=== PATIENT | male | born 1975 | race Caucasian/White ===

== ENCOUNTER → 2018-07-02 14:26 | Outpatient (CLI) | payer MEDICAID, SELFPAY ==
--- NOTE | 2018-07-02 14:40 | RAD_ITS ---
STUDY: X-RAY - CERVICAL SPINE REASON FOR EXAM: Male, 42 years old. Several year history of increasing neck pain. TECHNIQUE: 3 view(s) of the cervical spine were obtained. COMPARISON: None FINDINGS: Normal anterior atlantoaxial articulation. Normal odontoid process. There is straightening of the normal cervical lordosis. Anterior spondylosis at the C4-C5, C5-C6 and C6-C7 levels with moderate degree of disc space narrowing. Normal visualized intervertebral neuroforamina. The soft tissue structures are unremarkable. RAD/Cerv Spine 2 or 3 Views IMPRESSION: Straightening of the normal cervical lordosis. This space narrowing and spondylosis at the C4-C5, C5-C6 and C6-C7 levels. Electronically Signed: Roshan Cheema MD at 15:44 EST , Service support ,
== END ==
PROVIDERS: Referring Provider Anesthesiology Pain Medicine; Visit Provider Anesthesiology Pain Medicine
DX: M54.2 Cervicalgia (principal)
CPT/HCPCS: 72040

== ENCOUNTER → 2019-10-21 14:47 | Outpatient (CLI) | payer MEDICAID, SELFPAY ==
[2019-10-21 16:34] LABS: Amphetamine Urine VISTA NEGATIVE (<1000 ng/mL); Barbiturate Urine VISTA NEGATIVE (< 200 ng/mL); Benzodiazepine Urine VISTA NEGATIVE (< 200 ng/mL); Cocaine Urine VISTA NEGATIVE (< 300 ng/mL); Ecstacy Urine VISTA NEGATIVE (< 500 ng/mL); Methadone Urine VISTA NEGATIVE (< 300 ng/mL); PCP Urine VISTA NEGATIVE (< 25 ng/mL); THC Urine VISTA NEGATIVE (< 50 ng/mL); Vista UDS pH Range 6
== END ==
PROVIDERS: Referring Provider Anesthesiology Pain Medicine; Visit Provider Anesthesiology Pain Medicine
DX: F11.20 Opioid dependence, uncomplicated (principal)
CPT/HCPCS: 80307

== ENCOUNTER → 2019-11-18 13:45 | Outpatient (CLI) | payer MEDICARE, MEDICAID, SELFPAY ==
[2019-11-18 14:31] LABS: Amphetamine Urine VISTA NEGATIVE (<1000 ng/mL); Barbiturate Urine VISTA NEGATIVE (< 200 ng/mL); Benzodiazepine Urine VISTA NEGATIVE (< 200 ng/mL); Cocaine Urine VISTA NEGATIVE (< 300 ng/mL); Ecstacy Urine VISTA NEGATIVE (< 500 ng/mL); Methadone Urine VISTA NEGATIVE (< 300 ng/mL); PCP Urine VISTA NEGATIVE (< 25 ng/mL); THC Urine VISTA NEGATIVE (< 50 ng/mL); Vista UDS pH Range 6
[2019-11-18 15:07] LABS: OXY Internal Control LINE = VALID (VALID); Oxycodone Drug Screen Positive (<100 ng/mL)
== END ==
PROVIDERS: Referring Provider Anesthesiology Pain Medicine; Visit Provider Anesthesiology Pain Medicine
DX: F11.20 Opioid dependence, uncomplicated (principal)
CPT/HCPCS: 80307; 80365; G0480

== ENCOUNTER → 2020-03-01 | Outpatient (CLI) | payer MEDICARE, MEDICAID, SELFPAY ==
[2020-03-01 16:21] LABS: Amphetamine Urine VISTA NEGATIVE (<1000 ng/mL); Barbiturate Urine VISTA NEGATIVE (< 200 ng/mL); Benzodiazepine Urine VISTA NEGATIVE (< 200 ng/mL); Cocaine Urine VISTA NEGATIVE (< 300 ng/mL); Ecstacy Urine VISTA POSITIVE (< 500 ng/mL); Methadone Urine VISTA NEGATIVE (< 300 ng/mL); PCP Urine VISTA NEGATIVE (< 25 ng/mL); THC Urine VISTA NEGATIVE (< 50 ng/mL); Vista UDS pH Range 5
== END | disposition home or self-care (01) ==
LOC: LABSPEC 15:41
PROVIDERS: Referring Provider Anesthesiology Pain Medicine; Visit Provider Anesthesiology Pain Medicine
DX: F11.20 Opioid dependence, uncomplicated (principal)
CPT/HCPCS: 36415; 80307

== ENCOUNTER 2022-08-03 21:02 | Emergency (ER) | payer MEDICARE, MEDICAID, SELFPAY ==
[2022-08-03 21:03] VITALS: BP 186/90; PULSE 94; RESP 18; TEMP 36.8; O2SAT 99; BMI 34.0
--- NOTE | 2022-08-03 21:30 | RAD_ITS ---
INDICATION: Injury/Pain EXAMINATION/TECHNIQUE: X-RAY - XR Spine Cervical 4 or 5 Views COMPARISON: 07/02/2018 FINDINGS: VERTEBRAE: Preserved vertebral body height. No fracture. C4-C7 anterior segment effusion. Fractured screws at C4. Reversal of the typical cervical lordosis at C3-4. No significant facet arthropathy. DISCS: C3-4 endplate disease and disc space loss. NECK SOFT TISSUES: No prevertebral soft tissue widening. LUNG APICES: Clear. RAD/Cerv Spine 2 or 3 Views IMPRESSION: No evidence of acute fracture or spondylolisthesis. Progression of degenerative change, particularly at C3-4. Fractured screws at C4. Electronically Signed: Phi Flores MD at 21:50 EDT ,
--- NOTE | 2022-08-03 21:30 | RAD_ITS ---
INDICATION: Injury/Pain EXAMINATION/TECHNIQUE: X-RAY - XR Pelvis 1 or 2 Views COMPARISON: None. FINDINGS: PELVIC BONES: No displaced fracture, destructive or sclerotic lesions. Note that overlapping bowel shadows may however obscure fine detail. Sacroiliac joints are unremarkable. No widening of the pubic symphysis. L4-S1 posterior instrumented fusion and laminectomies. HIPS: The articular structures are unremarkable. No displaced fracture seen in this frontal view. SOFT TISSUES: No soft tissue swelling or gas. RAD/Pelvis 1 or 2 Views IMPRESSION: No evidence of displaced pelvic or hip fracture. Electronically Signed: Phi Flores MD at 21:52 EDT ,
--- NOTE | 2022-08-03 21:37 | EX.ED.DYSGE1 ---
HPI History of Present Illness Chief Complaint: General Illness Informant: patient Onset/Context/Timing Onset: Days (5) Context: Sudden Onset Timing: Continuous Quality: Sharp Location: Bilateral hips, neck Worsened by: Ambulation Relieved by: Nothing Narrative Narrative: Patient presents with neck and bilateral hip pain that began 5 days ago. Patient states he had a syncopal episode 5 days ago where he passed out from a standing position. Patient states he was out for approximately 30 seconds. Patient states that after he fell, he started having pain in both hips as well as his neck. Patient has a history of prior neck injuries and degenerative disc disease. Patient denies any paresthesias or weakness. Patient states his hip pain is worse with ambulation. Patient states nothing seems to help with the pain. Patient denies any paresthesias. Patient denies any bowel or bladder changes. Patient denies any saddle anesthesia. [facility] Medical History (Updated 08/03/22 @ 21:[address] Julian Peoples DO) Anxiety Congenital pyloric stenosis Depression Multiple sclerosis PTSD (post-traumatic stress disorder) Allergy/AdvReac Type Severity Reaction Status Date / Time citalopram [From Celexa] Allergy Hives Verified 08/03/22 21:06 cortisone Allergy Anaphylaxis Verified 08/03/22 21:06 Surgical History (Updated 08/03/22 @ 21:[address] Julian Peoples DO) History of back surgery Hx of foot surgery Hx of knee surgery Hx of neck surgery Social History Smoking Status: Current some day smoker tobacco type: cigarettes ROS ROS ED Constitutional Constitutional ED: Denies chills or fever(s) Eyes Eyes: Denies blurry vision or change in vision ENT ENT ED: Denies rhinorrhea or sore throat Cardiovascular Cardiovascular: Denies chest pain or palpitations Respiratory/Chest Respiratory/Chest: Denies cough or dyspnea Gastrointestinal Gastrointestinal: Denies nausea or vomiting Genitourinary Genitourinary ED: Denies dysuria or hematuria Musculoskeletal Musculoskeletal: Reports neck pain; Denies back pain Integumentary Denies abscess or rash Neurologic Neurologic: Reports headache(s); Denies weakness Allergic/Immunologic Allergic/Immunologic ED: Denies mouth swelling or urticaria EXAM Physical Exam Const Vital Signs: 08/03/22 21:03 08/03/22 21:10 Temperature 98.3 F Temperature Source Temporal Pulse Rate 94 Respiratory Rate 18 Respiratory Effort Normal Respiratory Pattern Normal Blood Pressure 186/90 H Blood Pressure Mean 122 Pulse Ox 99 Oxygen Delivery Method Room Air Positive well nourished, well developed and obese General Appearance ED: well developed and NAD Nutritional Appearance: obese HEENT Reports moist mucous membranes Neck supple and no JVD Neck Narrative: There is tenderness over the lower cervical spine and paraspinal muscles. There is no bony crepitance or step-off. There is no edema or ecchymosis. Range of motion is limited in all motions of the cervical spine secondary to pain. General: tenderness Resp normal respiratory effort and clear to auscultation bilaterally Cardio regular rate and regular rhythm GI normal to inspection, nondistended, normoactive bowel sounds and non-tender Extremity Extremity Narrative: There is tenderness over the hips bilaterally. There is mild pain with internal and external rotation of the hips bilaterally. There is no obvious deformity. Strength is 5/5 bilaterally in the lower extremities. There are no sensory deficits noted. Neuro oriented x3, CN's II-XII intact bilaterally and no sensory deficits noted Sensorium / Orientation: alert Motor Exam: strength 5/5 throughout Psych mental status grossly normal MDM MDM MDM Narrative Medical decision making narrative: Differential diagnosis includes cervical fracture, bilateral hip fractures, pelvic fracture, contusion, and muscle strain. X-rays of the cervical spine will be obtained to assess for cervical spine fracture. X-rays of the pelvis will be obtained to assess for hip fracture and pelvic fracture. Radiography Diagnostic Testing: Clinical Impression(s) from Imaging Studies Cervical Spine X-Ray 08/03/22 21:30 IMPRESSION: No evidence of acute fracture or spondylolisthesis. Progression of degenerative change, particularly at C3-4. Fractured screws at C4. Electronically Signed: Phi Flores MD at 21:50 EDT , Pelvis X-Ray 08/03/22 21:30 IMPRESSION: No evidence of displaced pelvic or hip fracture. Electronically Signed: Phi Flores MD at 21:52 EDT , X-rays of the cervical spine were obtained. There are 4 views. On my independent interpretation, there are some degenerative changes. There is no acute fracture or spondylolisthesis noted. There are some fractures of the screws at C4. There is no displacement of the vertebral bodies however. Radiologist also interpreted the x-rays and agrees. X-rays of the pelvis were obtained. There is 1 view. On my independent interpretation, there is no acute fracture noted. There are no degenerative changes noted. Radiologist also interpreted the x-rays and agrees. Treatment and Re-Evaluation :: Patient was given a dose of Toradol here. Patient was advised of his findings. Patient was instructed to take Tylenol or ibuprofen as needed for pain. Patient was instructed to follow-up with his primary care physician in 5 to 7 days. Patient was also instructed to follow-up with his spine surgeon in 5 to 7 days. Patient was instructed to return if worse in any way. Patient understood and was agreeable with plan. All questions were answered. Discharge Plan Triage Chief Complaint: General Illness ED Provider: Julian Peoples Dx/Rx/DC Orders Clinical Impression: Acute cervical myofascial strain, Contusion of left hip, initial encounter, Contusion of right hip, initial encounter Instructions: ED Contusion, Lower Extremity, ED Neck Sprain or Strain Primary Care Provider: Ryan Sultana Referrals: Ryan Sultana MD [Primary Care Provider] - 5-7 Days Disposition Disposition: Home, Self Care
[2022-08-03] MEDS: Ketorolac 60 MG/2 ML Vial IM (21:45)
== END 2022-08-03 22:12 | disposition home or self-care (01) ==
PROVIDERS: Emergency Provider Emergency Medicine; PCP Psychiatry & Neurology Sleep Medicine; Visit Provider Emergency Medicine
DX: S12.300A Unspecified displaced fracture of fourth cervical vertebra, initial encounter for closed fracture (principal); S70.01XA Contusion of right hip, initial encounter; S70.02XA Contusion of left hip, initial encounter; F17.210 Nicotine dependence, cigarettes, uncomplicated; W18.30XA Fall on same level, unspecified, initial encounter
CPT/HCPCS: 72040; 72170; 96372; 99283

== ENCOUNTER 2022-08-10 19:31 | Emergency (ER) | payer MEDICARE, MEDICAID, SELFPAY ==
[2022-08-10] VITALS (20 sets, daily range): BP systolic 147–165; BP diastolic 89–98; PULSE 74–95; RESP 10–32; TEMP 36.7; O2SAT 91–98; BMI 32.2
[2022-08-10 19:56] LABS: Absolute Lymphocyte Count 1.99 X10^3/uL (0.83-4.51); Basophil# 0.06 X10^3/uL; Basophil% 0.5 % (0-1); Eosinophil# 0.29 X10^3/uL; Eosinophils% 2.4 % (0-5); Hematocrit 39.9 % (40-54); Hemoglobin 13.1 g/dL (13.0-16.5); Lymphocyte # 1.99 X10^3/ul (0.83-4.51); Lymphocyte % 16.4 % (19-41); Mean Corp Hgb Conc 32.8 g/dL (32-36); Mean Corpuscular Hgb 26.3 pg (27.0-32.0); Mean Corpuscular Volume 80.1 fL (80-94); Monocyte# 0.77 X10^3/uL; Monocyte% 6.3 % (0-10); NRBC Flagged by Analyzer 0 % (0-5); Neutrophil # 8.99 X10^3/uL (2.7-7.7); Neutrophil % 74.1 % (47-70); Platelet Count 247 K/mm3 (150-450); RBC Distribution Width CV 14.5 % (11.6-14.6); RBC Distribution Width SD 41.4 fl (35.1-43.9); Red Blood Count 4.98 M/mm3 (4.6-6.2); White Blood Count 12.1 K/mm3 (4.4-11.0)
--- NOTE | 2022-08-10 19:56 | EKG12_ITS ---
Test Reason : DYSRHYTHMIA Blood Pressure : / mmHG Vent. Rate : 080 BPM Atrial Rate : 080 BPM P-R Int : 154 ms QRS Dur : 080 ms QT Int : 402 ms P-R-T Axes : 057 -13 054 degrees QTc Int : 463 ms Normal sinus rhythm Normal ECG Confirmed by ZA HOLDEN, GABBY ([id number]), editor department LEWIS PERALTA ([id number]) on 08/15/2022 7:41:57 AM Referred By: NIMESH Confirmed By:MODESTO MENDENHALL MD
[2022-08-10 20:10] LABS: Anion Gap 8 (5-15); BUN 16 mg/dL (7-18); Calcium,Total 9.1 mg/dL (8.5-10.1); Chloride 108 mmol/L (98-107); Creatinine, Serum 1.23 mg/dL (0.70-1.30); EST Glomerular Filtration Rate 67 mL/min (>60); Est Glom Filt Rate - Afr Amer 81 mL/min (>60); Estimated Creatinine Clearance 87.78 ml/min; Glucose 119 mg/dL (74-106); Potassium 3.7 mmol/L (3.5-5.1); Sodium Level 140 mmol/L (136-145)
--- NOTE | 2022-08-10 20:10 | RAD_ITS ---
INDICATION: SOB EXAMINATION/TECHNIQUE: X-RAY - XR Chest 1 View COMPARISON: None. FINDINGS: LINES/DEVICES: None. LUNGS: No consolidation, edema or effusion. No pneumothorax. MEDIASTINUM AND CARDIOVASCULAR STRUCTURES: Cardiac silhouette not enlarged. Central airways and mediastinal contour are unremarkable. BONES AND SOFT TISSUES: Unremarkable. RAD/Chest 1 View IMPRESSION: No radiographic evidence of acute cardiopulmonary disease. Electronically Signed: Abhijeet Bowling DO at 20:20 EDT ,
[2022-08-10] MEDS: Ipratropium/Albuterol Sulfate 3 ML AMPUL.NEB INHALATION (20:16)
[2022-08-10] MEDS: predniSONE 20 MG Tablet 60 MG PO (20:27)
[2022-08-10] MEDS: Albuterol 2.5 MG/3 ML VIAL.NEB. INHALATION ×3 (20:36→21:02)
--- NOTE | 2022-08-10 21:14 | EX.ED.VIS.UR ---
HPI HPI - URI History of Present Illness Chief Complaint: Shortness of Breath Detail of Chief Complaint: Shortness of breath with upper respiratory symptoms that started several da Informant: patient Onset/Context/Timing Onset: Days Context: Sudden Onset Timing: Continuous and Waxes and wanes Quality: Upper respiratory tract infectious symptoms Location: Upper [place] Current Severity: Moderate Maximum Severity: Severe Associated Symptoms Associated Symptoms: Positive for Nasal Congestion, Headache, Myalgias, Nausea, Shortness of Breath and Nonproductive cough; Negative for Sinus Pressure, Vomiting, Diarrhea, Chest Pain, Hemoptysis or Productive Cough Narrative Narrative: Patient is a 46-year-old male who is a smoker and presents with upper respiratory tract infection symptoms that started several days ago. He denies ill contacts. He complains of headache, rhinorrhea, congestion, sore throat, cough, dyspnea, [place] exertion and wheezing. He denies history of asthma or COPD. He denies history of VTE. He denies leg pain, swelling or discoloration. He denies nausea, vomiting or diarrhea. He denies urologic symptoms. He denies rash. Prior similar symptoms: Yes Recent Illness/Hospitalization: No ROS ROS ED Constitutional Constitutional ED: Reports chills, fever(s) and subjective; Denies sweats or weight loss Eyes Eyes: Denies blurry vision, change in vision or diplopia ENT ENT ED: Reports rhinorrhea and sore throat; Denies ear pain Cardiovascular Cardiovascular: Denies chest pain, orthopnea, palpitations, paroxysmal nocturnal dyspnea or racing heartbeat Respiratory/Chest Respiratory/Chest: Reports cough, dyspnea, dyspnea on exertion and other Details: Change in voice ; Denies orthopnea, paroxysmal nocturnal dyspnea or sputum Gastrointestinal Gastrointestinal: Denies abdominal pain, diarrhea or vomiting Genitourinary Genitourinary ED: Denies dysuria, hematuria or urinary frequency Musculoskeletal Musculoskeletal: Reports myalgias; Denies arthralgias, back pain or neck pain Integumentary Denies abscess or Abrasions Neurologic Neurologic: Reports headache(s) and weakness; Denies paresthesias Psychiatric Psychiatric: Reports anxiety Hematologic/Lymphatic Hematologic/Lymphatic: Denies easy bleeding or easy bruising [facility] Medical History Anxiety Congenital pyloric stenosis Depression Multiple sclerosis PTSD (post-traumatic stress disorder) Home Medications albuterol sulfate 90 mcg/actuation aerosol inhaler (Ventolin HFA) 2 puff inhalation Q4H PRN PRN Wheezing ##1 08/10/22 [Rx Last Taken Unknown] prednisone 20 mg tablet 60 mg PO DAILY #15 TABLETS 08/10/22 [Rx Last Taken Unknown] Allergy/AdvReac Type Severity Reaction Status Date / Time citalopram [From Celexa] Allergy Hives Verified 08/10/22 19:35 cortisone Allergy Anaphylaxis Verified 08/10/22 19:35 Surgical History History of back surgery Hx of foot surgery Hx of knee surgery Hx of neck surgery Social History household members: none Smoking Status: Current some day smoker tobacco type: cigarettes substance use type: does not use EXAM Physical Exam Const Vital Signs: 08/10/22 19:33 08/10/22 19:54 08/10/22 19:54 Temperature 98.0 F Temperature Source Temporal Pulse Rate 87 Respiratory Rate 20 H 21 H Respiratory Effort Respiratory Depth Respiratory Pattern Blood Pressure 163/98 H Blood Pressure Mean 119 Pulse Ox 97 98 Oxygen Delivery Method Room Air Room Air Room Air 08/10/22 20:23 Temperature Temperature Source Pulse Rate Respiratory Rate Respiratory Effort Short of Breath Accessory Muscle Use Respiratory Depth Deep Respiratory Pattern Tachypnea Blood Pressure Blood Pressure Mean Pulse Ox Oxygen Delivery Method Room Air Positive well nourished, well developed and obese Constitutional Narrative: Patient appears ill but not toxic. He has a hoarse voice. General Appearance ED: well developed; Negative for cyanotic, diaphoretic or pallor Nutritional Appearance: obese HEENT Reports moist mucous membranes normocephalic and atraumatic Face and Sinus: Negative for sinus tenderness Throat: posterior oropharynx normal Eyes PERRL and EOMs intact bilaterally General Eye ED: Negative for pale conjunctiva or scleral icterus Neck no lymphadenopathy, supple, no meningeal signs and no JVD Resp No normal respiratory effort and No clear to auscultation bilaterally Resp Narrative: There is minimal use of accessory muscles. There is no retractions. Auscultation: rales right base and wheezes expiratory wheezes, scattered wheezes and throughout Cardio S1 normal heart sound, S2 normal heart sound and no murmurs Rate: regular rate Rhythm: regular rhythm Back/Spine no CVA tenderness and normal ROM Thoracic Spine / Upper Back: Negative for thoracic spinal tenderness Lumbar Spine / Lower Back: Negative for lumbar spinal tenderness Extremity normal to inspection General Extremety ED: Negative for cyanosis, tenderness or other findings General Extremity: Negative for cyanosis or other findings Neuro oriented x3, CN's II-XII intact bilaterally and no sensory deficits noted Sensorium / Orientation: alert Psych mental status grossly normal Skin General Skin Exam: Negative for jaundice or pallor Lesions: no lesions Rashes: no rashes MDM MDM MDM Narrative Medical decision making narrative: Differential diagnosis includes acute bronchitis or bronchospasm, pneumonia with bronchospasm, purulent bronchitis. Will obtain chest x-ray to evaluate for pneumonia. Blood work to assess white count, rule out anemia. Electrolyte panel to assess glucose, CO2 anion gap and renal function since he has not had much to eat per his account History & Record Review Discussion w/independent historian: Patient Additional record(s) reviewed:: Prior ED visit (Prior ER record from August 03 was reviewed. It is not related to today's presentation.) Lab Data Attestation: I reviewed the patient's lab results. Lab results narrative: White count is elevated with mild shift. There is no bandemia. Basic metabolic panel reveals a creatinine of 1.23 with a GFR of 67. Glucose is slightly elevated 119 with a normal CO2 anion gap. Labs: Laboratory Results - last 24 hr 08/10/22 08/10/22 19:44 19:44 WBC 12.1 H RBC 4.98 Hgb 13.1 Hct 39.9 L MCV 80.1 MCH 26.3 L MCHC 32.8 RDW Std Deviation 41.4 RDW Coeff of Ade 14.5 Plt Count 247 MPV 9.0 Immature Gran % (Auto) 0.300 Neut % (Auto) 74.1 H Lymph % (Auto) 16.4 L [place] % (Auto) 6.3 Eos % (Auto) 2.4 Baso % (Auto) 0.5 Absolute Neuts (auto) 9.0 H Absolute Lymphs (auto) 1.99 Nucleated RBC % 0 Sodium 140 Potassium 3.7 Chloride 108 H Carbon Dioxide 24.0 Anion Gap 8 BUN 16 Creatinine 1.23 Estim Creat Clear Calc 87.78 Est GFR (MDRD) Af Amer 81 Est GFR (MDRD) Non-Af 67 BUN/Creatinine Ratio 13.0 Glucose 119 H Calcium 9.1 Radiography Chest X-Ray - ED: 2 View and Read by ED Physician (Chest x-ray was independently reviewed interpreted by me as negative. Cardiac silhouette and size unremarkable. Lung parenchyma is normal.) Diagnostic Testing: Clinical Impression(s) from Imaging Studies Chest X-Ray 08/10/22 20:10 IMPRESSION: No radiographic evidence of acute cardiopulmonary disease. Electronically Signed: Abhijeet Bowling DO at 20:20 EDT , Rhythm Strip Rhythm Strip: Sinus Rhythm Rate: 92 Ectopy: None Treatment and Re-Evaluation Narrative: Patient was treated with DuoNeb, albuterol. On reexamination at 2132 he still has slight wheezing. He looks and reports feeling much better. Patient was informed he has an acute bronchitis with bronchospasm. Since he is still wheezing will discharge with a prescription for prednisone and albuterol inhaler. He has used in albuterol inhaler in the past. He was informed that he needs to stop smoking. Discharge Plan Triage Chief Complaint: Shortness of Breath ED Provider: Justin Hall Dx/Rx/DC Orders Clinical Impression: Bronchospasm with bronchitis, acute, Tobacco use, Laryngitis Instructions: ED Bronchitis with Wheezing (Adult) Prescriptions: New prednisone 20 mg tablet 60 mg PO DAILY Qty: 15 0RF albuterol sulfate [Ventolin HFA] 90 mcg/actuation HFA aerosol inhaler 2 puff inhalation Q4H PRN PRN (Reason: Wheezing) Qty: 1 0RF Primary Care Provider: Ryan Sultana Referrals: Ryan Sultana MD [Primary Care Provider] - Disposition Disposition: Home, Self Care
--- NOTE | 2022-08-10 21:59 | CPS ---
x3 Albuterol given to pt. in ER as well
== END 2022-08-10 21:57 | disposition home or self-care (01) ==
PROVIDERS: Emergency Provider Emergency Medicine; PCP Psychiatry & Neurology Sleep Medicine; Visit Provider Emergency Medicine
DX: J20.9 Acute bronchitis, unspecified (principal); J04.0 Acute laryngitis; F17.210 Nicotine dependence, cigarettes, uncomplicated
CPT/HCPCS: 71045; 80048; 85025; 87811; 93005; 94640; 94760; 99252; 99282; A4216; G0463

== ENCOUNTER → 2023-08-14 | Outpatient (CLI) | payer SELFPAY ==
[2023-08-14 22:26] LABS: Absolute Neutrophil Count 4.3 X10^3/uL (2.0-7.7); Basophil# 0.08 X10^3/uL; Basophil% 0.9 % (0-1); Eosinophil# 0.23 X10^3/uL; Eosinophils% 2.6 % (0-5); Hematocrit 42.8 % (40-54); Hemoglobin 13.7 g/dL (13.0-16.5); Lymphocyte % 40.3 % (19-41); Mean Corpuscular Volume 81.2 fL (80-94); Mean Platelet Vol. 9.5 fl (6.2-12.0); Monocyte% 6.9 % (0-10); NRBC Flagged by Analyzer 0 % (0-5); Neutrophil # 4.25 X10^3/uL (2.7-7.7); Neutrophil % 49.1 % (47-70); Platelet Count 332 K/mm3 (150-450); RBC Distribution Width CV 13.3 % (11.6-14.6); RBC Distribution Width SD 38.9 fl (35.1-43.9); Red Blood Count 5.27 M/mm3 (4.6-6.2); White Blood Count 8.7 K/mm3 (4.4-11.0)
[2023-08-14 23:01] LABS: ALB/GLOB Ratio 1.1 RATIO (0.9-2.4); AST(SGOT) 12 U/L (15-37); Alanine Aminotransfer ALT/SGPT 24 U/L (16-61); Alkaline Phosphatase 140 U/L (45-117); Anion Gap 4 (5-15); BUN 25 mg/dL (7-18); BUN/Creat Ratio 19.8 RATIO (10-20); CRP, High Sensitivity Cardiac 0.83 mg/L; Calcium,Total 8.8 mg/dL (8.5-10.1); Chloride 111 mmol/L (98-107); Cholesterol 199 mg/dL (200); Creatinine, Serum 1.26 mg/dL (0.70-1.30); EST Glomerular Filtration Rate 65 mL/min (>60); Est Glom Filt Rate - Afr Amer 78 mL/min (>60); Globulin 3.7 g/dL (2.2-4.2); Glucose 113 mg/dL (74-106); High Density Lipoprotein 27 mg/dL; PSA,Total - Annual Screen 0.77 ng/mL (0.00-4.00); Potassium 4.1 mmol/L (3.5-5.1); Protein, Total 7.7 g/dL (6.4-8.2); Sodium Level 139 mmol/L (136-145); Thyroid Stim Hormone (TSH) 0.79 uIU/mL (0.358-3.74); Triglycerides 453 mg/dL; Troponin-I HS 4 pg/mL (3.0-78.0)
== END | disposition home or self-care (01) ==
PROVIDERS: PCP Nurse Practitioner; Visit Provider Nurse Practitioner
DX: R07.9 Chest pain, unspecified (principal); R59.1 Generalized enlarged lymph nodes; S01.301A Unspecified open wound of right ear, initial encounter; I10 Essential (primary) hypertension; F41.9 Anxiety disorder, unspecified; R35.0 Frequency of micturition
CPT/HCPCS: 80053; 80061; 84153; 84443; 84484; 85025; 86141; 87070; 87077; 87186; 87205; G0103

== ENCOUNTER → 2023-08-15 | Outpatient (CLI) | payer MEDICARE, MEDICAID, SELFPAY ==
--- NOTE | 2023-08-15 09:55 | RAD_ITS ---
INDICATION: R chest pain -- patient states had MRI in 2018 and found a nodule? EXAMINATION/TECHNIQUE: X-RAY - XR Chest 2 Views W/ Lordotic COMPARISON: August 10, 2022 FINDINGS: LINES/DEVICES: None. LUNGS: No consolidation, edema or effusion. No pneumothorax. MEDIASTINUM AND CARDIOVASCULAR STRUCTURES: Cardiac silhouette not enlarged. Central airways and mediastinal contour are unremarkable. BONES AND SOFT TISSUES: There are postsurgical changes of visualized cervical spine. RAD/Chest 2 V w/ Apical/Lordotic IMPRESSION: No radiographic evidence of acute cardiopulmonary disease. Electronically Signed: Elif Dhillon MD at 9:19 EDT ,
== END | disposition home or self-care (01) ==
PROVIDERS: PCP Nurse Practitioner; Referring Provider Nurse Practitioner; Visit Provider Nurse Practitioner
DX: R07.9 Chest pain, unspecified (principal)
CPT/HCPCS: 71047

== ENCOUNTER 2024-06-24 21:10 | Emergency (ER) | payer MEDICARE, SELFPAY ==
[2024-06-24 21:11] VITALS: BP 121/77; PULSE 79; RESP 20; TEMP 36.9; O2SAT 98; BMI 30.2
[2024-06-24 21:13] VITALS: BP 121/77; PULSE 79; RESP 20; TEMP 36.9; O2SAT 98
--- NOTE | 2024-06-24 21:13 | RAD_ITS ---
PROCEDURE: CHEST 1 VIEW (PORTABLE) REASON FOR EXAM: Cough. TECHNIQUE: Frontal view of the chest. COMPARISON: 08/15/2023. FINDINGS: Cardiac size and pulmonary vasculature are within normal limits. No consolidation, pleural effusion, or pneumothorax is present. There is dextroscoliosis of the midthoracic spine. Cervical spinal fusion is noted. RAD/Chest 1 View (Portable) IMPRESSION: No acute cardiopulmonary process. Reading Location: [facility]
[2024-06-24 23:07] VITALS: RESP 16; O2SAT 99
[2024-06-24 23:10] VITALS: BP 122/68; PULSE 70; RESP 12; O2SAT 98
--- NOTE | 2024-06-24 23:34 | EX.ED.DYSGE1 ---
HPI History of Present Illness Chief Complaint: Cold Sx Informant: patient Narrative Narrative: 48-year-old male states he has been sick for a month. He states he started with vomiting and diarrhea for about 2 days, then it was mostly diarrhea for another week, now for the past 2 weeks he has been having cough, congestion, asthma flareup, fevers, persistent diarrhea although not as bad, and he feels nauseated again but he has not vomited today. First time he has seen a provider for this illness. Denies any leg swelling. He has a sore lesion on his left ear, he states he does not have anything to put on it. He denies sore throat or mouth pain. No rashes otherwise. He has been using his rescue inhaler quite a bit at home and it has been helping temporarily. [facility] Medical History Asthma, exercise induced Anxiety Depression PTSD (post-traumatic stress disorder) Multiple sclerosis Congenital pyloric stenosis Home Medications ?Medication ?Instructions ?Recorded ?Last Taken ?Type acetaminophen 650 mg 650 mg PO Q12H 11/17/22 Unknown History tablet,extended release (Tylenol 8 Hour) atorvastatin 20 mg tablet 20 mg PO QHS 11/17/22 Unknown History fluoxetine 40 mg capsule (Prozac) 40 mg PO DAILY 11/17/22 Unknown History pregabalin 300 mg capsule 600 mg PO DAILY 11/17/22 Unknown History bupropion HCl 150 mg tablet,12 hr 150 mg PO BID #60 ea 08/14/23 Unknown Rx sustained-release quetiapine 50 mg tablet 50 mg PO TID 08/14/23 Unknown History promethazine 12.5 mg tablet 12.5 mg PO TID PRN nausea and 09/13/23 Unknown Rx vomiting #30 tabs albuterol sulfate 90 mcg/actuation 2 puff inhalation Q4H PRN PRN 01/18/24 Unknown Rx aerosol inhaler (Ventolin HFA) Wheezing ##1 lisinopril 10 mg tablet 10 mg PO DAILY #30 tabs 01/18/24 Unknown Rx topiramate 100 mg tablet 100 mg PO BID #60 tabs 01/18/24 Unknown Rx hydroxyzine pamoate 50 mg capsule 50 mg PO Q8H PRN nausea and 06/24/24 Unknown History vomiting mupirocin 2 % topical ointment 1 applic topical BID PRN rash #15 06/24/24 Unknown Rx grams ondansetron 8 mg disintegrating 8 mg PO Q8H PRN nausea and 06/24/24 Unknown Rx tablet vomiting #12 tabs oxycodone 10 mg tablet 10 mg PO TID PRN PRN pain 06/24/24 Unknown History prednisone 10 mg tablet 10 mg PO UD #30 tabs 06/24/24 Unknown Rx sumatriptan succinate 6 mg/0.5 mL 6 mg subcut .COMPLEX Q1-4H 06/24/24 Unknown History subcutaneous solution tizanidine 4 mg tablet 4 mg PO Q12H 06/24/24 Unknown History Allergy/AdvReac Type Severity Reaction Status Date / Time citalopram (From [employer] Allergy Hives Verified 06/24/24 21:11 cortisone Allergy Anaphylaxis Verified 06/24/24 21:11 Family History Brother Asthma Testicular cancer Prostate cancer Sister Breast cancer Diabetes Aunt Breast cancer Mother CVA (cerebral vascular accident), Onset Age: 65 Hypertension Grandfather Heart disease Myocardial infarction Hypertension Sudden cardiac Prostate cancer Father Hypertension Prostate cancer Grandmother Hypertension Aunt Hypertension Kidney disease Surgical History History of back surgery Hx of foot surgery Hx of knee surgery Hx of neck surgery Social History household members: none Smoking Status: Current some day smoker tobacco type: cigarettes substance use type: does not use ROS ROS ED Constitutional Constitutional ED: Reports fever(s); Denies chills ENT ENT ED: Reports ear pain bilateral, nasal congestion, rhinorrhea and sore throat Cardiovascular Cardiovascular: Denies chest pain or palpitations Respiratory/Chest Respiratory/Chest: Reports cough, dyspnea, dyspnea on exertion and sputum Gastrointestinal Gastrointestinal: Reports diarrhea and nausea; Denies abdominal pain or vomiting Genitourinary Genitourinary ED: Denies dysuria or hematuria Musculoskeletal Musculoskeletal: Denies myalgias or neck pain Integumentary Denies abscess or rash Neurologic Neurologic: Denies headache(s), paresthesias or weakness Endocrine Endocrinology: Denies polydipsia or polyuria EXAM Physical Exam Const Vital Signs: 06/24/24 21:11 06/24/24 21:13 06/24/24 23:07 Temperature 98.5 F 98.5 F Temperature Source Oral Oral Pulse Rate 79 79 Respiratory Rate 20 H 20 H Respiratory Effort Respiratory Depth Respiratory Pattern Blood Pressure 121/77 H 121/77 H Blood Pressure Mean 91 91 Pulse Ox 98 98 Oxygen Delivery Method Room Air Room Air Room Air 06/24/24 23:07 06/24/24 23:10 06/24/24 23:11 Temperature Temperature Source Pulse Rate 70 Respiratory Rate 16 12 Respiratory Effort Normal Respiratory Depth Normal Respiratory Pattern Normal Blood Pressure 122/68 H Blood Pressure Mean 86 Pulse Ox 99 98 Oxygen Delivery Method Room Air Room Air Positive well nourished and well developed General Appearance ED: well developed and NAD HEENT Reports moist mucous membranes HEENT Narrative: TMs normal bilaterally, the left one is barely visible through the impacted cerumen. There is a minimally tender crusted erythematous area external left ear, it is less than a centimeter in diameter and there is no fluctuance or abscess. The rest of the EAC is normal intraoral exam is normal, there is no lesions on the palate or tongue. normocephalic and atraumatic Throat: Negative for posterior oropharynx abnormal Eyes PERRL and EOMs intact bilaterally Neck no lymphadenopathy, supple, no meningeal signs and no JVD Resp Resp Narrative: Prolonged expiratory phase with diffuse expiratory wheezes, no rales or rhonchi no respiratory distress able to speak in full sentences. Cardio no murmurs Rate: regular rate Rhythm: regular rhythm GI normal to inspection, nondistended, normoactive bowel sounds and non-tender Neuro oriented x3, CN's II-XII intact bilaterally and no sensory deficits noted Sensorium / Orientation: alert Motor Exam: strength 5/5 throughout Psych mental status grossly normal Skin no rashes or lesions noted and no wounds Lesions: no lesions Rashes: no rashes MDM MDM MDM Narrative Medical decision making narrative: Chest x-ray 1 view on my interpretation negative for pneumonia radiology in agreement. His COVID/influenza/RSV swab is negative. He was given a duo nebulizer treatment for his asthma which helped, he is not hypoxic or need of admission the rest of his vital signs are normal. I suspect this is a viral syndrome. I am going to treat him for an asthma exacerbation, give him some Zofran which helped his nausea, start him on some steroids. He states he has anaphylaxis to cortisone, I asked him specifically if he has had prednisone before he states yes and has had no problems with it. I am prescribing him Zofran, prednisone, as well as mupirocin to put on the lesion on his ear. Supportive care advised he is comfortable with that plan. Radiography Diagnostic Testing: Clinical Impression(s) from Imaging Studies Chest X-Ray 06/24/24 21:13 IMPRESSION: No acute cardiopulmonary process. Reading [facility] Discharge Plan Triage Chief Complaint: Cold Sx ED Provider: Lebron Penaloza Dx/Rx/DC Orders Clinical Impression: Acute viral syndrome, Acute asthmatic bronchitis, Asthma exacerbation Instructions: ED Asthma, Acute (Adult), ED Viral Syndrome (Adult) Prescriptions: New prednisone 10 mg tablet 10 mg PO UD Qty: 30 0RF Rx Instructions: Take 4 tablets daily for 3 days, then 3 daily for 3 days, then 2 daily for 3 days, then 1 a day for 3 days ondansetron 8 mg tablet,disintegrating 8 mg PO Q8H PRN (Reason: nausea and vomiting) Qty: 12 0RF mupirocin 2 % ointment 1 applic topical BID PRN (Reason: rash) Qty: 15 0RF No Action pregabalin 300 mg capsule 600 mg PO DAILY fluoxetine [Prozac] 40 mg capsule 40 mg PO DAILY atorvastatin 20 mg tablet 20 mg PO QHS acetaminophen [Tylenol 8 Hour] 650 mg tablet extended release 650 mg PO Q12H quetiapine 50 mg tablet 50 mg PO TID Rx Instructions: 50 mg bid and 150 qhs bupropion HCl 150 mg tablet sustained-release 12 hr 150 mg PO BID Qty: 60 12RF Rx Instructions: start with 1 pill a day for 5 days then 2 x a day albuterol sulfate [Ventolin HFA] 90 mcg/actuation HFA aerosol inhaler 2 puff inhalation Q4H PRN PRN (Reason: Wheezing) Qty: 1 12RF lisinopril 10 mg tablet 10 mg PO DAILY Qty: 30 12RF topiramate 100 mg tablet 100 mg PO BID Qty: 60 12RF tizanidine 4 mg tablet 4 mg PO Q12H Patient Comments: TAKE 1 TABLET BY MOUTH EVERY MORNING and TAKE 2 TABLETS BY MOUTH EVERY EVENING hydroxyzine pamoate 50 mg capsule 50 mg PO Q8H PRN (Reason: nausea and vomiting) Patient Comments: [NO ORIGINAL SIG] oxycodone 10 mg tablet 10 mg PO TID PRN PRN (Reason: pain) sumatriptan succinate 6 mg/0.5 mL solution 6 mg subcut .COMPLEX Rx Instructions: 6 mg subcutaneously; promethazine 12.5 mg tablet 12.5 mg PO TID PRN (Reason: nausea and vomiting) Qty: 30 12RF Primary Care Provider: Rachelle Tavera NP Referrals: Rachelle Tavera NP, [employer] [Primary Care Provider] - 1 Week if not improving Print Language: Bulgarian Disposition Disposition: Home, Self Care
[2024-06-24 23:37] VITALS: PULSE 79; RESP 18
[2024-06-24] MEDS: Ipratropium/Albuterol Sulfate 3 ML AMPUL.NEB INHALATION (23:37)
[2024-06-25] MEDS: predniSONE 20 MG Tablet 40 MG PO
[2024-06-25] MEDS: Ondansetron ODT 4 MG Tablet 8 MG PO
[2024-06-25 00:39] VITALS: BP 117/77; PULSE 60; RESP 12; TEMP 37.2; O2SAT 100
== END 2024-06-25 01:02 | disposition home or self-care (01) ==
LOC: ED 23:59
PROVIDERS: Emergency Provider Emergency Medicine; PCP Nurse Practitioner; Visit Provider Emergency Medicine
DX: J45.901 Unspecified asthma with (acute) exacerbation (principal); F17.210 Nicotine dependence, cigarettes, uncomplicated; B34.9 Viral infection, unspecified; F32.A Depression, unspecified; Z79.899 Other long term (current) drug therapy; R11.0 Nausea
CPT/HCPCS: 71045; 87631; 94640; 94760; 99284